=== PATIENT | female | born 1990 | race Two or more races ===

== ENCOUNTER 2019-03-13 16:00 | Emergency (ER) | payer OTHER ==
[~2019-03-13] VITALS: Ht 152.4 cm; Wt 56.7 kg
[~2019-03-13 16:00] MED LIST: CLINDAMYCIN PO; Procardia Xl 30MG TAB PO
[2019-03-13] MEDS ORDERED: FOLIC ACID1 MG (16:19)
[2019-03-13] MEDS ORDERED: PRENATAL VITAM1 EAC5 (16:19)
== END 2019-03-13 21:04 | disposition home or self-care (01) ==
LOC: ER 16:00
DX: O21.0 Mild hyperemesis gravidarum (principal); Z34.81 Encounter for supervision of other normal pregnancy, first trimester

== ENCOUNTER 2019-09-12 09:59 | Inpatient (IN) | payer OTHER ==
[~2019-09-12] VITALS: Ht 157.5 cm; Wt 67.1 kg
[~2019-09-12 09:59] MED LIST changes: +FOLIC ACID1 MG; +PRENATAL VITAM1 EAC5
[2019-09-23] MEDS ORDERED: IRON PO (04:18)
[2019-10-01] MEDS ORDERED: PROFERRIN-FORT1 EACH PO (15:15)
== END 2019-10-04 12:04 | disposition home or self-care (01) | DRG 807 ==
LOC: LDR 09-27 07:00 → OB/GYN 10-02 14:58
PROVIDERS: ADMIT Obstetrics & Gynecology
PROC: 10907ZC Drainage of Amniotic Fluid, Therapeutic from Products of Conception, Via Natural or Artificial Opening (ICD-10-PCS; 2019-10-01)
PROC: 3E033VJ Introduction of Other Hormone into Peripheral Vein, Percutaneous Approach (ICD-10-PCS; 2019-10-01)
PROC: 4A1HXCZ Monitoring of Products of Conception, Cardiac Rate, External Approach (ICD-10-PCS; 2019-10-01)
PROC: 10E0XZZ Delivery of Products of Conception, External Approach (ICD-10-PCS; principal; 2019-10-02)
PROC: 0KQM0ZZ Repair Perineum Muscle, Open Approach (ICD-10-PCS; 2019-10-02)
DX: O70.1 Second degree perineal laceration during delivery (principal); Z37.0 Single live birth; Z3A.39 39 weeks gestation of pregnancy

== ENCOUNTER 2019-09-23 02:12 | Outpatient (CLI) | payer OTHER ==
[2019-09-23] MEDS ORDERED: IRON PO (04:18)
== END 2019-09-23 09:38 ==
LOC: OBS/DEL 02:12
DX: O47.1 False labor at or after 37 completed weeks of gestation (principal)

== ENCOUNTER 2021-06-02 18:33 | Emergency (ER) | payer OTHER ==
[~2021-06-02] VITALS: Ht 157.5 cm; Wt 56.7 kg
[~2021-06-02 18:33] MED LIST changes: +IRON PO; +PROFERRIN-FORT1 EACH PO
== END 2021-06-02 20:41 | disposition home or self-care (01) ==
LOC: ER 18:33
DX: K08.89 Other specified disorders of teeth and supporting structures (principal)

== ENCOUNTER 2021-12-09 17:51 | Inpatient (IN) | payer OTHER ==
[~2021-12-09] VITALS: Ht 157.5 cm; Wt 3.6 kg
[2021-12-09] MEDS ORDERED: FOLIC ACID20 MG (19:13)
== END 2021-12-12 20:27 | disposition home or self-care (01) | DRG 785 ==
LOC: LDR 17:51 → O/R 17:51 → OB/GYN 17:51 → O/R 12-10 11:54 → OB/GYN 12-10 15:13
PROVIDERS: ADMIT Obstetrics & Gynecology; ATTEND Obstetrics & Gynecology
PROC: 10D00Z1 Extraction of Products of Conception, Low, Open Approach (ICD-10-PCS; principal; 2021-12-09)
PROC: 0UB70ZZ Excision of Bilateral Fallopian Tubes, Open Approach (ICD-10-PCS; 2021-12-09)
PROC: 4A1HXCZ Monitoring of Products of Conception, Cardiac Rate, External Approach (ICD-10-PCS; 2021-12-09)
DX: O76 Abnormality in fetal heart rate and rhythm complicating labor and delivery (principal); O36.63X0 Maternal care for excessive fetal growth, third trimester, not applicable or unspecified; Z3A.38 38 weeks gestation of pregnancy; Z37.0 Single live birth; Z30.2 Encounter for sterilization